=== PATIENT | female | born 1965 | race Caucasian/White ===

== ENCOUNTER 2018-07-13 06:49 | Day surgery (SDC) | payer OTHER ==
[~2018-07-13] VITALS: Ht 149.9 cm; Wt 68.0 kg
[~2018-07-13 06:49] MED LIST: ACET-784 PO; DIVA-78 PO; LEVO125 PO; METF500T7 PO; MIRALAX PO; MULT-961 PO; OS500 PO; PROM6.2522 PO; QUET200T PO; SENN-175 PO; SIMV-260 PO; VITAD400 PO
[2018-07-13] MEDS ORDERED: PROPOFOL 1% 20 ML VIAL IVP ONE (06:50)
[2018-07-13] MEDS ORDERED: ONDANSETRON HCL 4 MG/2 ML VIAL IVP ONE (06:50)
[2018-07-13] MEDS ORDERED: LIDOCAINE HCL/PF 2% 5 ML VIAL IM ONE (06:50)
[2018-07-13] MEDS ORDERED: FentaNYL CITRATE-PF 100 MCG/2 ML VIAL IVP ONE (06:50)
[2018-07-13] MEDS ORDERED: ROCURONIUM BROMIDE 10 MG/ML 5 ML VIAL IVP ONE (06:50)
[2018-07-13] MEDS ORDERED: SUCCINYLCHOLINE CHLORIDE 20 MG/ML 10 ML VIAL IVP ONE (06:50)
[2018-07-13] MEDS ORDERED: MIDAZOLAM HCL 2 MG/2 ML VIAL IVP ONE (06:50)
[2018-07-13] MEDS ORDERED: DEXAMETHASONE SOD PHOS 4 MG/ML VIAL IVP ONE (06:50)
[2018-07-13] MEDS ORDERED: RINGERS SOLUTION,LACTATED 1,000 ML IV ONE ×2 (07:00→07:06)
[2018-07-13 08:31] LABS: BASOPHILS % (AUTO) 0.7 % (0.0-2.0); EOSINOPHILS % (AUTO) 0.5 % (1.0-6.0); HEMATOCRIT 37.1 % (36-46); LYMPHOCYTES # (AUTO) 3.9 K/uL (1.0-4.8); LYMPHOCYTES % (AUTO) 47.9 % (22.0-44.0); MEAN CORPUSCULAR HEMOGLOBIN 31.8 pg (26.0-34.0); MEAN CORPUSCULAR HGB CONC 34.9 G/dL (31.0-37.0); MEAN CORPUSCULAR VOLUME 91 fL (80-100); MONOCYTES # (AUTO) 1.1 K/uL (0.1-1.0); NEUTROPHILS % (AUTO) 36.9 % (40.0-70.0); PLATELET COUNT (AUTO) 152 K/uL (150-450); RED BLOOD CELL COUNT(AUTO) 4.07 MIL/uL (4.00-5.20); RED CELL DISTRIBUTION WIDTH 13.3 % (11.5-14.5)
[2018-07-13 08:37] LABS: ANION GAP 9 mmol/L (8-16); CALCIUM, TOTAL 9.2 mg/dL (8.8-10.5); CARBON DIOXIDE 27 mmol/L (22-29); CHLORIDE 95 mmol/L (98-107); GLOMERULAR FILTR. RATE CALC > 60 mL/min (>60); GLUCOSE,RANDOM 121 mg/dL (70-110); POTASSIUM 4.3 mmol/L (3.5-5.1); SODIUM SERUM 131 mmol/L (136-145); UREA NITROGEN, BLOOD 7 mg/dL (7-18)
[2018-07-13 08:38] LABS: INR 0.9 (0.9-1.1); PROTHROMBIN TIME 9.8 SEC (9.4-11.6)
[2018-07-13 08:42] LABS: VALPROIC ACID 111 mcg/mL (50-100)
[2018-07-13] MEDS ORDERED: AMPICILLIN SODIUM 1 GM/VIAL ONE (08:43)
[2018-07-13] MEDS ORDERED: SODIUM CHLORIDE 0.9% 50 ML ONE (08:59)
[2018-07-13] MEDS ORDERED: CLINDAMYCIN PHOS 150 MG/ML 4 ML VIAL ONE (08:59)
== END 2018-07-13 13:08 | disposition home or self-care (01) ==
LOC: SURGERY 06:49
PROVIDERS: ATTEND Dentist General Practice
DX: K05.30 Chronic periodontitis, unspecified (principal); K03.6 Deposits [accretions] on teeth; E11.9 Type 2 diabetes mellitus without complications; E03.9 Hypothyroidism, unspecified; E78.5 Hyperlipidemia, unspecified; H54.8 Legal blindness, as defined in USA; F20.89 Other schizophrenia; E87.1 Hypo-osmolality and hyponatremia; K59.09 Other constipation; F71 Moderate intellectual disabilities; Z79.891 Long term (current) use of opiate analgesic; Z87.440 Personal history of urinary (tract) infections; Z88.0 Allergy status to penicillin; Z79.84 Long term (current) use of oral hypoglycemic drugs; Z79.899 Other long term (current) drug therapy
CPT/HCPCS: 36415; 41899; 71045; 80048; 80164; 85025; 85610; 85730; 93005; J0330; J1100; J2250; J2405; J2704; J3010; J3490 ×2; J7050; J7120; S0077; J0290